=== PATIENT | male | born 1945 | race Hispanic/Latino ===

== ENCOUNTER 2018-10-22 14:43 | Observation (INO) | payer OTHER ==
[~2018-10-22] VITALS: Ht 177.8 cm; Wt 88.0 kg
[~2018-10-22 14:43] MED LIST: AVODART0.5 MG PO; DIOVAN80 MG PO; GLIMEPIRIDE2 MG PO; HYDROCHLOROTHIA25 MG PO; LEVEMIR100 UNIT/1 SQ; METFORMIN HCL500 MG PO; METOPROLOL SUCC50 MG PO; NOVOLOG100 UNIT/1 SQ; ONE DAILY FOR1 EAC2 PO; TAMSULOSIN HCL0.4 MG PO
[2018-10-22 15:49] LABS: BASOPHILS # (AUTO) 0.1 (0.0-0.1); BASOPHILS % 0.5 % (0.0-1.0); EOSINOPHILS # (AUTO) 3.1 (0.0-0.4); HEMATOCRIT 37.7 % (38.2-49.6); HEMOGLOBIN 12.9 g/dL (14.0-18.0); LYMPHOCYTES # (AUTO) 1.5 (1.0-3.2); LYMPHOCYTES % 7.6 % (18.0-39.1); MEAN CORPUSCULAR HEMOGLOBIN 30.2 pg (28-32); MEAN CORPUSCULAR HGB CONC 34.2 g/dL (31-35); MEAN CORPUSCULAR VOLUME 88.3 fL (81-99); MONOCYTES # (AUTO) 1.1 (0.2-0.8); MONOCYTES % 5.6 % (4.4-11.3); NEUTROPHILS # (AUTO) 13.2 (2.1-6.9); NEUTROPHILS % 67.4 % (38.7-80.0); PLATELET COUNT 335 x10e3/uL (140-360); RED BLOOD COUNT 4.27 x10e6/uL (4.3-5.7); RED CELL DISTRIBUTION WIDTH 15.8 % (11.7-14.4)
[2018-10-22 16:01] LABS: ALANINE AMINOTRANSFERASE 182 IU/L (0-55); ALBUMIN 1.8 g/dL (3.5-5.0); ALBUMIN/GLOBULIN RATIO 0.3 (0.8-2.0); ALKALINE PHOSPHATASE 965 IU/L (40-150); ANION GAP 14.7 mmol/L (8-16); BLOOD UREA NITROGEN 19 mg/dL (7-26); BUN/CREATININE RATIO 20 (6-25); CARBON DIOXIDE 21 mmol/L (22-29); CHLORIDE 100 mmol/L (98-107); CREATININE, SERUM 0.97 mg/dL (0.72-1.25); EST GLOMERULAR FILTRATION RATE > 60 ML/MIN (60-); GLUCOSE 174 mg/dL (74-118); LIPASE 146 U/L (8-78); POTASSIUM 3.7 mmol/L (3.5-5.1); SODIUM 132 mmol/L (136-145)
--- NOTE | 2018-10-22 16:14 | Diagnostic Imaging Report ---
EXAM: XR CHEST 2 VIEWS DATE: 10/22/2018 3:36 PM INDICATION: Cough COMPARISON: 10/04/2018, no report available FINDINGS: Lines and Tubes: None Heart and Mediastinum: No acute cardiomediastinal findings. Lungs and Pleura: Linear opacities lung bases suggest atelectasis. Bones and Soft Tissues: No acute findings. IMPRESSION: 1. Probable basilar atelectasis. Signed by: Dr. Jaylan Arevalo MD on 10/22/2018 4:11 PM
[2018-10-22] MEDS ORDERED: VANCOMYCIN 1GM/NS 250 ML 250 ML IV ONE (17:00)
[2018-10-22 17:16] LABS: CREATINE KINASE 14 IU/L (30-200)
[2018-10-22] MEDS ORDERED: PHENYLEPHRINE HCL 1% 10 MG/ML VIAL ONE (17:38)
[2018-10-22] MEDS: CEFEPIME HCL 1 GM VIAL IV SCH (17:41)
[2018-10-22 18:42] LABS: CLARITY,URINE CLEAR (CLEAR); COLOR,URINE AMBER (YELLOW); KETONES,URINE NEGATIVE (NEGATIVE); LEUKOCYTE ESTERASE ,URINE NEGATIVE (NEGATIVE); NITRITE,URINE NEGATIVE (NEGATIVE); PROTEIN,URINE DIPSTICK TRACE (NEGATIVE); URINE UROBILINOGEN 0.2 mg/dL (0.2 - 1)
[2018-10-22 18:43] LABS: BILIRUBIN,URINE 2+ (NEGATIVE)
[2018-10-22] MEDS ORDERED: SODIUM CHLORIDE 0.9% 50ML 50 ML ONE (18:43)
[2018-10-22] MEDS ORDERED: IOPAMIDOL 370 MG/ML 200 ML INFUS..BTL INJ ONE (18:43)
[2018-10-22] MEDS ORDERED: DIOVAN80 MG PO (19:03)
[2018-10-22] MEDS ORDERED: METOCLOPRAMIDE H5 MG PO (19:03)
[2018-10-22] MEDS ORDERED: eliquis PO (19:03)
[2018-10-22] MEDS ORDERED: TRAZODONE HCL50 MG PO (19:03)
[2018-10-22] MEDS ORDERED: PRAVASTATIN SOD40 MG PO (19:03)
[2018-10-22] MEDS ORDERED: NIFEDIPINE ER60 M1 PO (19:03)
[2018-10-22] MEDS ORDERED: PANTOPRAZOLE SO40 MG PO (19:03)
[2018-10-22] MEDS ORDERED: FENTANYL1 EACH TOP (19:03)
[2018-10-22] MEDS ORDERED: NOVOLOG100 UNITS1 SC (19:03)
[2018-10-22] MEDS ORDERED: ESIDRIX25 MG PO (19:03)
[2018-10-22 19:09] LABS: WBC,URINE (MAN) 0-5 /HPF (0-5)
--- NOTE | 2018-10-22 19:22 | Diagnostic Imaging Report ---
EXAM: CT Abdomen and Pelvis WITH contrast INDICATION: Elevated LFTs. Elevated white blood cell count. Pain. COMPARISON: 10/03/2018 TECHNIQUE: Abdomen and pelvis were scanned utilizing a multidetector helical scanner from the lung base to the pubic symphysis after administration of IV contrast. Coronal and sagittal reformations were obtained. Routine protocol was performed. Scan was performed when during portal venous phase. IV CONTRAST: 150 mL of Omnipaque 300 ORAL CONTRAST: Water RADIATION DOSE: Total DLP: 628.06 mGy*cm Estimated effective dose: (DLP x 0.015 x size factor) mSv COMPLICATIONS: None FINDINGS: LINES and TUBES: None. LOWER THORAX: Irregular densities in the left lung base suggestive of subsegmental atelectasis. 9 mm groundglass nodule in the right lower lobe posteriorly on image 3 series 2. 3 mm noncalcified nodule in the left upper lobe anteriorly on image 2. HEPATOBILIARY: Interval increase in size of previously present low-attenuation hepatic lesions some: For instance, a lesion in posterior segment of the right hepatic lobe previously measuring 2.4 x 2.3 cm currently measures 5.0 x 3.6 cm on image 28 series 2. A lesion in the hepatic dome previously measuring 1.8 x 1.6 cm on image 14 series 2 currently measures 2.8 x 2.7 cm on image 17 series 2. There are also new small lesions. No biliary ductal dilation. GALLBLADDER: No radio-opaque stones or sludge. No wall thickening. SPLEEN: No splenomegaly. PANCREAS: No focal masses or ductal dilatation. ADRENALS: No adrenal nodules KIDNEYS/URETERS: Kidneys enhance symmetrically. No hydronephrosis. No cystic or solid mass lesions. No stones. GI TRACT: Redemonstration of a distal transverse colostomy in the left mid abdomen. No bowel dilatation to suggest obstruction. Previously present nodular wall thickening of the transverse colon has resolved. PELVIC ORGANS/BLADDER: The prostate is enlarged measuring 6.3 x 6.0 cm on image 90 series 2. LYMPH NODES: Mildly prominent mesenteric lymph nodes. VESSELS: There is mild atherosclerotic disease in the aorta and major arterial branches. PERITONEUM / RETROPERITONEUM: There has been interval increase in volume of ascites. Nodularity along the peritoneal surfaces patchily in the left upper quadrant consistent with carcinomatosis with a nodule measuring 2.0 cm on image 24 series 2. BONES: No acute abnormality. Degenerative changes. SOFT TISSUES: Unremarkable. IMPRESSION: 1. Interval increase in size of multiple hepatic metastasis. 2. Interval increase in volume of a small volume ascites. Evidence of carcinomatosis particularly in the left upper quadrant. No loculated fluid collections to suggest abscess formation. 3. Diverging transverse colostomy again noted. 4. Enlarged prostate. 5. Interval resolution of previously present transverse colitis. 6. 9 mm on glass nodule in the right lower lobe. Recommend attention on future follow-up. Signed by: Dr. Nigel Grady M.D. on 10/22/2018 7:19 PM
[2018-10-22] MEDS ORDERED: ULTRAM 50MG50 MG PO (19:24)
[2018-10-22] MEDS ORDERED: TYLENOL # 31 EA PO (19:24)
[2018-10-22 19:30] VITALS: BP 143/80
[2018-10-22 20:57] LABS: BAND NEUTROPHILS % (MANUAL) 12 %; EOSINOPHILS % (MANUAL) 6 % (0-7); LYMPHOCYTES % (MANUAL) 11 % (19-48); MONOCYTES % (MANUAL) 3 % (3.4-9.0); NEUTROPHILS % (MANUAL) 67 % (40-74)
[2018-10-22 21:01] LABS: HYPOCHROMASIA SLIGHT; PLATELET ESTIMATE ADEQUATE; PLATELET MORPHOLOGY COMMENT NORMAL; RBC MORPHOLOGY COMMENT NORMAL
[2018-10-22 21:02] LABS: ANISOCYTOSIS SLIGHT
[2018-10-22 22:21] VITALS: BP 143/80
[2018-10-22 22:26] VITALS: BP 143/80
[2018-10-22 22:58] LABS: CREATINE KINASE MB 0.6 ng/mL (0-5.0)
[2018-10-23] VITALS (8 sets, daily range): BP systolic 122–162; BP diastolic 64–74
[2018-10-23] MEDS: CEFEPIME HCL 1 GM VIAL IV SCH ×2 (03:49→16:35)
[2018-10-23 05:44] LABS: BASOPHILS # (AUTO) 0.1 (0.0-0.1); BASOPHILS % 0.6 % (0.0-1.0); EOSINOPHILS # (AUTO) 4.4 (0.0-0.4); EOSINOPHILS % 21.4 % (0.0-6.0); HEMATOCRIT 34.7 % (38.2-49.6); LYMPHOCYTES # (AUTO) 1.9 (1.0-3.2); LYMPHOCYTES % 9.2 % (18.0-39.1); MEAN CORPUSCULAR HEMOGLOBIN 30.5 pg (28-32); MEAN CORPUSCULAR HGB CONC 34.6 g/dL (31-35); MEAN CORPUSCULAR VOLUME 88.3 fL (81-99); MONOCYTES # (AUTO) 1.3 (0.2-0.8); MONOCYTES % 6.2 % (4.4-11.3); NEUTROPHILS # (AUTO) 12.1 (2.1-6.9); NEUTROPHILS % 59.6 % (38.7-80.0); PLATELET COUNT 278 x10e3/uL (140-360); RED BLOOD COUNT 3.93 x10e6/uL (4.3-5.7); RED CELL DISTRIBUTION WIDTH 16.1 % (11.7-14.4)
[2018-10-23 06:05] LABS: CREATINE KINASE 9 IU/L (30-200)
[2018-10-23 07:56] LABS: ALANINE AMINOTRANSFERASE 142 IU/L (0-55); ALBUMIN 1.6 g/dL (3.5-5.0); ALBUMIN/GLOBULIN RATIO 0.3 (0.8-2.0); ALKALINE PHOSPHATASE 815 IU/L (40-150); ANION GAP 13.7 mmol/L (8-16); BLOOD UREA NITROGEN 15 mg/dL (7-26); BUN/CREATININE RATIO 20 (6-25); CALCIUM 8.3 mg/dL (8.4-10.2); CARBON DIOXIDE 21 mmol/L (22-29); CHLORIDE 100 mmol/L (98-107); CREATININE, SERUM 0.74 mg/dL (0.72-1.25); EST GLOMERULAR FILTRATION RATE > 60 ML/MIN (60-); GLUCOSE 209 mg/dL (74-118); POTASSIUM 3.7 mmol/L (3.5-5.1); SODIUM 131 mmol/L (136-145)
[2018-10-23] MEDS ORDERED: ACETAMINOPHEN/CODEINE 300MG - 30MG TAB PO PRN (10:00)
[2018-10-23] MEDS ORDERED: DEXTROSE 50% SYRINGE 50 ML IV PRN (10:00)
[2018-10-23] MEDS ORDERED: FENTANYL 25 MCG/HR PATCH TOP SCH ×2 (10:00)
[2018-10-23] MEDS: METRONIDAZOLE 500MG/NS 100ML 100 ML IV SCH ×3 (11:40→21:21)
[2018-10-23] MEDS: INSULIN LISPRO 100 UNIT/1 ML 3ML VIAL SQ SCH ×4 (11:40→21:00)
[2018-10-23] MEDS: TRAMADOL HCL 50 MG TAB PO SCH ×4 (13:47→23:29)
[2018-10-23] MEDS ORDERED: INSULIN LISPRO 100 UNIT/1 ML 3ML VIAL SQ SCH (15:00)
[2018-10-23] MEDS: NIFEDIPINE CR 30 MG TAB PO SCH (16:35)
[2018-10-23] MEDS ORDERED: NON-FORMULARY MEDICATION (Nifedipine (Nifedipine Er) 60 MG) PO SCH (17:00)
--- NOTE | 2018-10-23 19:22 | History and Physical ---
CHIEF COMPLAINT: Elevated liver enzymes. PRIMARY CARE PROVIDER: Dr. Gal Motta HISTORY OF PRESENT ILLNESS: Patient is a 73-year-old male, who was discharged on October 06, 2018. At that time, he was diagnosed with bilateral pulmonary embolism. He is on Eliquis anticoagulant therapy. He also has hypertensive urgency at that time, but more importantly, he had obstructed splenic flexure of the colon with status post subsequent laparoscopic-assisted mobilization of splenic flexure and resection of the splenic flexure of the colon with end-colostomy. Patient did well. He was, subsequently, discharged home. The patient came in this time because his liver enzymes is significantly elevated than before. His CT scan of abdomen and pelvis showing that he has increased size multiple hepatic metastases. He also has increased in volume of a small volume ascites, however. There is evidence of carcinomatosis particularly in the left upper quadrant. No loculated fluid collection to suggest abscess formation. There is diverting transverse colostomy in the CT scan. The patient is stable. He does not complain of any pain. No chest pain, no shortness of breath. No abdominal pain. No fever. PAST MEDICAL HISTORY: Stage-IV colon cancer, status post partial colon resection with end colostomy. He has diverting traverse colostomy. Hypertension. bilateral pulmonary embolism. On anticoagulant therapy. PAST SURGICAL HISTORY: As above. SOCIAL HISTORY: Patient does not smoke or use alcohol. No recreational drugs. ALLERGIES: NO KNOWN ALLERGIES. HOME MEDICATIONS: Reviewed. REVIEW OF SYSTEMS: As mentioned. PHYSICAL EXAMINATION VITAL SIGNS: Temperature is 98. Blood pressure 125/62. Pulse rate 85. Respirations 18. GENERAL: The patient is not in acute distress. He is awake. HEENT: Normocephalic, atraumatic, anicteric. NECK: Supple grossly. PULMONARY: Diminished breath sounds without any wheezing or rales. CARDIOVASCULAR: S1, S2. Regular rhythm. ABDOMEN: End colostomy. EXTREMITIES: No cyanosis or edema. NEUROLOGIC: No gross focal deficit. LABORATORY: Sodium is 131, potassium 3.7, chloride 100, bicarb 21, BUN 15, creatinine 0.7. Glucose 209. WBC is 20.3, hemoglobin 12, hematocrit 34.7, platelet is 278,000. AST is 134, ALT 142, total bilirubin is 8, and alkaline phosphatase is 815. IMPRESSIONS 1. Elevation of liver enzymes. 2. Liver metastases. 3. Stage-IV colon cancer. 4. Recent hospitalization with bilateral pulmonary embolism. PLAN 1. Lovenox. 2. Continue with management. 3. Consultation with Dr. Shannon for Port-A-Cath. 4. Continue with antibiotics. 5. Repeat the lab work in the morning. 6. Pain control if needed. 7. Will monitor the patient closely. 8. Will follow up on Dr. Shannon's plan for the Port-A-Cath. 9. Consultation with Dr. Luz Bañuelos, oncologist, saw the patient previously. 10. Patient may need further workup due to increasing bilirubin. Job#: [id number] CQ
[2018-10-23] MEDS: ENOXAPARIN SOD INJ 60 MG/0.6 ML SYR SC SCH (19:41)
[2018-10-23] MEDS: INSULIN DETEMIR 100 UNIT/ML PEN SQ SCH (21:00)
[2018-10-23] MEDS ORDERED: INSULIN DETEMIR 24 UNIT SQ SCH (21:00)
[2018-10-23] MEDS: TAMSULOSIN HCL 0.4 MG CAP PO SCH (21:21)
[2018-10-23] MEDS: DUTASTERIDE 0.5 MG CAP PO SCH (21:21)
[2018-10-23] MEDS: TRAZODONE HCL 50 MG TAB PO SCH (21:21)
[2018-10-24] VITALS: BP 135/72
[2018-10-24 04:00] VITALS: BP 129/70
[2018-10-24] MEDS: CEFEPIME HCL 1 GM VIAL IV SCH (04:28)
[2018-10-24 05:27] LABS: BASOPHILS # (AUTO) 0.1 (0.0-0.1); BASOPHILS % 0.5 % (0.0-1.0); EOSINOPHILS # (AUTO) 4.4 (0.0-0.4); EOSINOPHILS % 21.5 % (0.0-6.0); HEMATOCRIT 33.4 % (38.2-49.6); HEMOGLOBIN 11.4 g/dL (14.0-18.0); LYMPHOCYTES # (AUTO) 1.5 (1.0-3.2); LYMPHOCYTES % 7.1 % (18.0-39.1); MEAN CORPUSCULAR HEMOGLOBIN 29.9 pg (28-32); MEAN CORPUSCULAR HGB CONC 34.1 g/dL (31-35); MEAN CORPUSCULAR VOLUME 87.7 fL (81-99); MONOCYTES # (AUTO) 1.3 (0.2-0.8); MONOCYTES % 6.3 % (4.4-11.3); NEUTROPHILS # (AUTO) 12.3 (2.1-6.9); NEUTROPHILS % 60.5 % (38.7-80.0); PLATELET COUNT 258 x10e3/uL (140-360); RED BLOOD COUNT 3.81 x10e6/uL (4.3-5.7); RED CELL DISTRIBUTION WIDTH 16.4 % (11.7-14.4)
[2018-10-24 05:43] LABS: ALANINE AMINOTRANSFERASE 92 IU/L (0-55); ALBUMIN 1.5 g/dL (3.5-5.0); ALBUMIN/GLOBULIN RATIO 0.3 (0.8-2.0); ALKALINE PHOSPHATASE 830 IU/L (40-150); ANION GAP 12.9 mmol/L (8-16); BLOOD UREA NITROGEN 16 mg/dL (7-26); BUN/CREATININE RATIO 20 (6-25); CALCIUM 7.9 mg/dL (8.4-10.2); CARBON DIOXIDE 20 mmol/L (22-29); CHLORIDE 101 mmol/L (98-107); CREATININE, SERUM 0.82 mg/dL (0.72-1.25); EST GLOMERULAR FILTRATION RATE > 60 ML/MIN (60-); GLUCOSE 220 mg/dL (74-118); POTASSIUM 3.9 mmol/L (3.5-5.1); SODIUM 130 mmol/L (136-145)
[2018-10-24] MEDS: METRONIDAZOLE 500MG/NS 100ML 100 ML IV SCH ×3 (06:00→22:00)
[2018-10-24] MEDS: TRAMADOL HCL 50 MG TAB PO SCH ×3 (06:00→22:00)
[2018-10-24] MEDS: ENOXAPARIN SOD INJ 60 MG/0.6 ML SYR SC SCH ×2 (06:58→21:00)
[2018-10-24] MEDS: INSULIN LISPRO 100 UNIT/1 ML 3ML VIAL SQ SCH ×7 (07:30→21:00)
[2018-10-24 07:38] LABS: BAND NEUTROPHILS % (MANUAL) 9 %; EOSINOPHILS % (MANUAL) 12 % (0-7); LYMPHOCYTES % (MANUAL) 4 % (19-48); MONOCYTES % (MANUAL) 7 % (3.4-9.0); NEUTROPHILS % (MANUAL) 68 % (40-74)
[2018-10-24 07:39] LABS: RBC MORPHOLOGY COMMENT NORMAL
[2018-10-24 07:40] VITALS: BP 126/69
[2018-10-24 07:40] LABS: PLATELET ESTIMATE ADEQUATE; PLATELET MORPHOLOGY COMMENT NORMAL
[2018-10-24 08:00] VITALS: BP 126/69
[2018-10-24] MEDS: NIFEDIPINE CR 30 MG TAB PO SCH ×2 (08:37→17:12)
[2018-10-24] MEDS ORDERED: INSULIN DETEMIR 100 UNIT/ML PEN SQ ONE ×2 (10:45)
[2018-10-24] MEDS ORDERED: HEPARIN SOD (PORCINE) 1000 UNIT/ML SDV ONE (10:47)
[2018-10-24] MEDS ORDERED: SODIUM CHLORIDE 0.9% 100 ML ONE (10:47)
[2018-10-24] MEDS ORDERED: BUPIVACAINE 0.25%/EPI 30ML SDV INJ ONE (10:47)
[2018-10-24 11:00] VITALS: BP 113/63
--- NOTE | 2018-10-24 13:47 | Diagnostic Imaging Report ---
EXAM: XR CHEST 1 VIEW DATE: 10/24/2018 12:38 PM INDICATION: Procedure, rule out pneumothorax COMPARISON: None FINDINGS: Lines and Tubes: Left chest wall port with tip overlying cavoatrial junction. Heart and Mediastinum: Accentuated by low lung voids. Lungs and Pleura: Bibasilar opacities. Evaluation for pneumothorax limited by underpenetration and body habitus. No definite pneumothorax identified. Bones and Soft Tissues: No acute findings. IMPRESSION: 1. Within limitations as above, no definite pneumothorax. Signed by: Dr. Jaylan Arevalo MD on 10/24/2018 1:43 PM
[2018-10-24] MEDS ORDERED: ONDANSETRON HCL INJ 2 MG/ML VIAL ONE (16:04)
[2018-10-24] MEDS ORDERED: PROPOFOL IV EMULSION 10 MG/ML 20 ML VIAL ONE (16:04)
[2018-10-24] MEDS ORDERED: SEVOFLURANE INHAL SOLN 250 ML PEN BTL ONE (16:04)
[2018-10-24] MEDS ORDERED: LIDOCAINE HCL 2% LOCAL INJ 5 ML SDV VIAL INJ ONE (16:04)
[2018-10-24] MEDS ORDERED: DEXAMETHASONE SOD PHOS INJ 4 MG/ML VIAL ONE (16:04)
[2018-10-24] MEDS ORDERED: SODIUM CHLORIDE 0.9% 250ML 250 ML ONE (16:30)
[2018-10-24] MEDS: METOPROLOL SUCCINATE 50 MG TAB XL PO SCH (17:11)
[2018-10-24] MEDS: PANTOPRAZOLE SOD 40 MG TABEC PO SCH (17:11)
[2018-10-24] MEDS: CEFEPIME 1GM/NS 0.9% 50 ML 50 ML IV SCH (17:12)
[2018-10-24] MEDS ORDERED: FENTANYL CITRATE/PF 100MCG/2 ML INJ ONE (19:46)
[2018-10-24] MEDS ORDERED: MIDAZOLAM HCL 2 MG/2 ML VIAL ONE (19:46)
[2018-10-24 20:00] VITALS: BP 129/64
[2018-10-24] MEDS: INSULIN DETEMIR 100 UNIT/ML PEN SQ SCH (21:00)
[2018-10-24] MEDS: TRAZODONE HCL 50 MG TAB PO SCH (21:00)
[2018-10-24] MEDS: DUTASTERIDE 0.5 MG CAP PO SCH (21:00)
[2018-10-24] MEDS: TAMSULOSIN HCL 0.4 MG CAP PO SCH (21:00)
[2018-10-25] VITALS: BP 124/66
--- NOTE | 2018-10-25 03:59 | Consultation ---
GASTROENTEROLOGY CONSULTATION DATE OF CONSULTATION: October 24, 2018 REFERRING PHYSICIAN: Vick Oseguera MD REASON FOR CONSULTATION: Abnormal liver enzymes. HISTORY OF PRESENT ILLNESS: This is a 73-year-old very pleasant white male who was admitted in September this year. At that time, he was diagnosed with some pulmonary embolism, he was discharged home on Eliquis. Patient was also found to have some kind of malignant obstruction at the splenic flexure that required laparoscopic-assisted mobilization of splenic flexure with end colostomy. Patient was doing well at home. However, his routine blood work revealed further increase in liver enzymes. He got admitted for further evaluation. Patient denies any GI symptoms. CT scan performed on this admission showed increasing size liver metastases. Evidence of peritoneal seeds in the left upper quadrant. No associated fever or chills. PAST MEDICAL HISTORY: Stage IV colon cancer status post partial colon resection with diverting colostomy, pulmonary embolism, and hypertension. PAST SURGICAL HISTORY: Diverting colostomy for splenic flexure, splenic rupture colon cancer. FAMILY HISTORY: Noncontributory. SOCIAL HISTORY: No smoking, alcohol, or any illicit drug use. ALLERGIES: NONE. HOME MEDICATIONS: Acetaminophen, dutasteride, Fentanyl dermal patch, hydrochlorothiazide, insulin aspart, insulin Detemir, metoclopramide, metoprolol succinate, nifedipine, pantoprazole, pravastatin, tamsulosin, tramadol, trazodone, and Eliquis. ALLERGIES: No known drug allergies. PHYSICAL EXAMINATION VITALS: Temperature 97.1, pulse 79, respirations 18, blood pressure 129/64, and oxygen saturation 100% on 3 liters of nasal cannula. GENERAL: Not in any acute distress. HEENT: Oral mucosa is moist. Anicteric sclerae. CVS: S1 and S2 regular. PULMONARY: Decreased breath sounds at bases. ABDOMEN: Soft. Palpable right upper quadrant tenderness on deep palpation. Palpable hepatomegaly. Bowel sounds present. EXTREMITIES: No leg edema. No other mass or hernia. LABORATORY DATA: WBC 20.35, hemoglobin has come down to 11.4 from 12.0, hematocrit 33.4, and platelet count 258. Sodium 130, potassium of 3.9, chloride 101, bicarb 20, BUN is 16, creatinine 0.82, and glucose 132. Liver enzymes showed a total bilirubin 7.9, ALT has come down to 82 from 134, AST has come down to 92 from 142, and alkaline phosphatase has come down to 830 from 850. DIAGNOSTIC DATA: Chest x-ray is within limitations, no definite cardiopulmonary process. CT of the abdomen and pelvis with contrast showed: 1. Interval increase in size of multiple hepatic metastases. 2. Interval increase in volume of small volume ascites. Evidence of carcinomatosis, particularly in the left upper quadrant. No loculated fluid collection to suggest abscess formation. 3. Diverging transverse colostomy again noted. 4. Enlarged prostate. 5. Interval resolution of previously present transverse colitis. 6. A 9-mm of glass nodule in the right lower lobe. Recommend attention of future followup. Abnormal liver enzymes in the setting of a stage 4 left colon cancer with liver metastasis. Abnormal liver enzymes, predominantly elevated alkaline phosphatase, are secondary to liver metastasis. PLAN: From GI standpoint, nothing to offer. Liver enzymes, predominantly elevated alkaline phosphatase, secondary to liver metastasis. Supportive care. Consider palliative care as well. Thank you Dr. Oseguera for allowing me to participate in the care of this patient. Job#: [id number] FLORIDALMA CULP
[2018-10-25 04:00] VITALS: BP 128/69
[2018-10-25] MEDS: CEFEPIME 1GM/NS 0.9% 50 ML 50 ML IV SCH (05:00)
[2018-10-25] MEDS: TRAMADOL HCL 50 MG TAB PO SCH (05:17)
[2018-10-25] MEDS: METRONIDAZOLE 500MG/NS 100ML 100 ML IV SCH (05:17)
[2018-10-25 05:45] LABS: BASOPHILS # (AUTO) 0.1 (0.0-0.1); BASOPHILS % 0.4 % (0.0-1.0); EOSINOPHILS # (AUTO) 4.4 (0.0-0.4); EOSINOPHILS % 19.6 % (0.0-6.0); HEMATOCRIT 34.6 % (38.2-49.6); HEMOGLOBIN 11.8 g/dL (14.0-18.0); LYMPHOCYTES # (AUTO) 1.5 (1.0-3.2); LYMPHOCYTES % 6.9 % (18.0-39.1); MEAN CORPUSCULAR HEMOGLOBIN 30.2 pg (28-32); MEAN CORPUSCULAR HGB CONC 34.1 g/dL (31-35); MEAN CORPUSCULAR VOLUME 88.5 fL (81-99); MONOCYTES # (AUTO) 1.3 (0.2-0.8); NEUTROPHILS # (AUTO) 14.3 (2.1-6.9); NEUTROPHILS % 63.7 % (38.7-80.0); PLATELET COUNT 257 x10e3/uL (140-360); RED BLOOD COUNT 3.91 x10e6/uL (4.3-5.7)
[2018-10-25 06:18] LABS: ALANINE AMINOTRANSFERASE 64 IU/L (0-55); ALBUMIN 1.5 g/dL (3.5-5.0); ALBUMIN/GLOBULIN RATIO 0.3 (0.8-2.0); ALKALINE PHOSPHATASE 719 IU/L (40-150); BLOOD UREA NITROGEN 18 mg/dL (7-26); BUN/CREATININE RATIO 20 (6-25); CALCIUM 8.4 mg/dL (8.4-10.2); CARBON DIOXIDE 24 mmol/L (22-29); CHLORIDE 101 mmol/L (98-107); CREATININE, SERUM 0.89 mg/dL (0.72-1.25); EST GLOMERULAR FILTRATION RATE > 60 ML/MIN (60-); GLUCOSE 167 mg/dL (74-118); SODIUM 134 mmol/L (136-145)
[2018-10-25 07:08] LABS: BAND NEUTROPHILS % (MANUAL) 3 %
[2018-10-25 07:09] LABS: EOSINOPHILS % (MANUAL) 14 % (0-7)
[2018-10-25 07:11] LABS: LYMPHOCYTES % (MANUAL) 6 % (19-48); MONOCYTES % (MANUAL) 5 % (3.4-9.0); NEUTROPHILS % (MANUAL) 72 % (40-74); PLATELET ESTIMATE ADEQUATE; PLATELET MORPHOLOGY COMMENT NORMAL
[2018-10-25 07:12] LABS: RBC MORPHOLOGY COMMENT NORMAL
[2018-10-25] MEDS: INSULIN LISPRO 100 UNIT/1 ML 3ML VIAL SQ SCH ×4 (07:30→12:00)
[2018-10-25 07:43] VITALS: BP 119/64
[2018-10-25 08:00] VITALS: BP 119/64
[2018-10-25] MEDS: ENOXAPARIN SOD INJ 60 MG/0.6 ML SYR SC SCH (08:30)
[2018-10-25] MEDS: PANTOPRAZOLE SOD 40 MG TABEC PO SCH (08:30)
[2018-10-25] MEDS: METOPROLOL SUCCINATE 50 MG TAB XL PO SCH (08:30)
[2018-10-25] MEDS: NIFEDIPINE CR 30 MG TAB PO SCH (08:30)
[2018-10-25 11:30] VITALS: BP 112/59
[2018-10-25 16:13] VITALS: BP 171/78
--- NOTE | 2018-10-25 20:14 | Discharge Summary ---
Patient lives in observation. PRIMARY CARE PHYSICIAN: Dr. Gal Motta. CONSULTANTS 1. Dr. Rik Shannon. 2. Dr. Luz Bañuelos. 3. Dr. Nigel Daly. FINAL DIAGNOSES 1. Stage IV colon cancer with liver metastasis. 2. Elevation of liver enzymes and leukocytosis secondary to liver metastasis, stage IV. SUMMARY: This is a 73-year-old male who came in with increase in liver enzymes. Patient was pending for an appointment with Dr. Janie Leonard, his oncologist; however, because of liver enzymes elevation, the patient was sent into the hospital for evaluation by his primary care physician, Dr. Gal Motta. Here, the patient subsequently had a Port-A-Cath placement since he is already in the hospital at this time. There is no sign of infection. No fever. The patient normally is feeling without any pain, short of breath, or chest pain. The patient is otherwise stable. Port-A-Cath is placed. The patient will go home today. He will resume his home medication. Keflex 500 mg 3 times a day for 7 days. He does have an appointment with Dr. Janie Leonard on this Saturday. The patient is stable otherwise. Job#: [id number] KACIE
--- NOTE | 2018-11-05 21:13 | Operative Report ---
DATE OF PROCEDURE: October 24, 2018 PREOPERATIVE DIAGNOSIS: Metastatic carcinoma of the colon. POSTOPERATIVE DIAGNOSIS: Metastatic carcinoma of the colon. OPERATIVE PROCEDURE: Port-A-Cath placement. ANESTHESIA: General. INDICATIONS FOR SURGERY: This patient is 73-year-old male with history of known colonic malignancy, status post partial colectomy and end colostomy. The patient has been diagnosed with stage 4 colon cancer with metastasis to the liver. He has consent for placement of Port-A-Cath for chemotherapy. Attendant risks of bleeding, infection, organ injury, risk of DVT and pulmonary embolus in view of his hyperthrombotic state related to malignancy discussed. DESCRIPTION OF PROCEDURE: The patient was brought to the OR and given general anesthesia in supine position. The anterior chest and neck was prepped with alcohol and draped in sterile fashion. A transverse incision was made 2 fingerbreadths below the left midclavicular line extending to skin and subcutaneous tissue down to the fascia of the chest wall. A subcutaneous pocket was then created inferiorly for the housing of the port. Using a 16-gauge needle, the left subclavian vein was localized after the first attempt. Intravenous blood was drawn and a guidewire was passed into the vein. Fluoroscopy confirmed proper location of the guidewire in the superior vena cava. We then followed the Seldinger technique to dilate the subcutaneous tissue tract and the introducer was passed over the guidewire, which was then pulled out and the catheter was then threaded over the introducer under fluoroscopy until the tip was located in the distal superior vena cava. The catheter was then cut down to proper length and connected to the port, which was then placed in the subcutaneous pocket. 2-0 Prolene stitch was used to anchor the port to the fascia of the chest wall. Operative field was then irrigated. Hemostasis was achieved. The wound was closed with interrupted 3-0 Vicryl for subcutaneous tissue and subcuticular stitch for the skin. Dermabond was placed on the wound. The patient was then extubated and transported to recovery room in guarded condition. ESTIMATED BLOOD LOSS: 5 mL. Job#: [id number]
== END 2018-10-25 15:00 | disposition home or self-care (01) ==
LOC: ER 14:43 → ERHOLD 18:42 → IMCU 20:10
PROVIDERS: ADMIT Internal Medicine; ATTEND Internal Medicine
DX: C18.9 Malignant neoplasm of colon, unspecified (principal); C78.7 Secondary malignant neoplasm of liver and intrahepatic bile duct; Z93.3 Colostomy status; E11.9 Type 2 diabetes mellitus without complications; I10 Essential (primary) hypertension; Z87.891 Personal history of nicotine dependence; Z86.711 Personal history of pulmonary embolism; Z79.01 Long term (current) use of anticoagulants; Z79.4 Long term (current) use of insulin
CPT/HCPCS: 36415 ×4; 36561; 71045; 71046; 74177; 80053 ×4; 81001; 82248; 82550 ×2; 82553 ×2; 82948 ×4; 83605; 83690; 84484 ×2; 85025 ×4; 86704; 86706; 86803; 87040; 87340; 99284; C1751; G0378 ×4; J0692 ×4; J1100; J1644; J1650 ×3; J2001; J2250; J2370; J2405; J2704; J3370; J7050 ×2; Q9967; S0164 ×2; 77001